=== PATIENT | female | born 1990 | race African-American/Black ===

== ENCOUNTER 2021-04-26 23:02 | Outpatient (REF) | payer OTHER, SELFPAY ==
[2021-04-27 00:06] LABS: COVID-19 Test Negative (Negative)
== END 2021-04-26 23:03 | disposition home or self-care (01) ==
LOC: HO.LAB 23:02
PROVIDERS: Visit Provider Internal Medicine
DX: Z20.822 Contact with and (suspected) exposure to COVID-19 (principal)
CPT/HCPCS: 87635

== ENCOUNTER 2022-03-16 06:48 | Outpatient (REF) | payer OTHER, SELFPAY ==
[2022-03-16 07:38] LABS: COVID-19 Test Positive (Negative); IDNOW Serial# 16C4AD1C
== END 2022-03-16 06:49 | disposition home or self-care (01) ==
LOC: HO.LAB 06:48
PROVIDERS: Visit Provider Internal Medicine
DX: Z20.822 Contact with and (suspected) exposure to COVID-19 (principal)
CPT/HCPCS: 87635